=== PATIENT | female | born 2000 | race Caucasian/White ===

== ENCOUNTER 2021-08-02 01:11 | Emergency (ER) | payer MEDICAID ==
[~2021-08-02] VITALS: Ht 170.2 cm; Wt 77.0 kg
[2021-08-02] MEDS ORDERED: MORPHINE SULFATE 4 MG/ML CPJ (NOT FOR IM USE) IV STA (01:43)
[2021-08-02] MEDS ORDERED: ONDANSETRON HCL 4MG/2ML INJ IV STA (01:43)
[2021-08-02] MEDS ORDERED: SODIUM CHLORIDE 0.9% 1,000 ML IV ONE (03:30)
[2021-08-02 03:53] LABS: HEMATOCRIT. 43.4 % (36.0-48.0); HEMOGLOBIN. 14.5 g/dL (12.0-16.0); MEAN CORPUSCULAR HEMOGLOBIN 27.5 pg (28.0-32.0); MEAN CORPUSCULAR VOLUME 82.5 fL (81.0-99.0); MEAN PLATELET VOLUME 9.3 fl (7.4-10.4); PLATELET 192 x1000/uL (130-400); RED BLOOD CELL COUNT 5.26 mill/uL (4.2-5.4); RED CELL DISTRIBUTION WIDTH 14.5 % (11.6-14.6)
[2021-08-02 04:10] LABS: HCG SCREEN NEGATIVE
[2021-08-02 04:18] VITALS: BP 113/67
[2021-08-02 04:21] LABS: CHLORIDE 110 mEq/L (98-107)
[2021-08-02 04:36] LABS: PLATELET ESTIMATE NORMAL
[2021-08-02] MEDS ORDERED: HYDR-4001 MT (06:13)
== END 2021-08-02 06:32 | disposition home or self-care (01) ==
LOC: ER 01:25
DX: S42.491A Other displaced fracture of lower end of right humerus, initial encounter for closed fracture (principal); V49.59XA Passenger injured in collision with other motor vehicles in traffic accident, initial encounter; Y93.89 Activity, other specified; Y92.488 Other paved roadways as the place of occurrence of the external cause
CPT/HCPCS: 29105; 36415; 73060; 73080; 80048; 84703; 85025; 96361; 96374; 96375; 99284; J2270; J2405; J7030; A4565